=== PATIENT | male | born 1980 | race Caucasian/White ===

== ENCOUNTER 2018-12-12 10:58 | Emergency (ER) | payer SELFPAY ==
[2018-12-12 11:11] VITALS: BP 140/80; PULSE 98; TEMP 98
[2018-12-12] MEDS ORDERED: KETOROLAC TROMETHAMINE 60 MG/2 ML VIAL IM ONE (12:46)
[2018-12-12] MEDS ORDERED: KETOROLAC TROMETHAMINE 60 MG/2 ML VIAL ONE (12:50)
--- NOTE | 2018-12-12 12:51 | PDOC ---
History of Present Illness - General Chief Complaint: Chronic pain Stated Complaint: KNEE PAIN Time Seen by Provider: 12/12/18 12:31 - History of Present Illness Initial Comments: 12/12/18 12:47 38-year-old male without comorbidities presents for evaluation of polyarthralgia 3 months without any precipitating traumatic event he also has lower back pain he states he noticed it when the weather changed. Past History - Past Medical History Allergies/Adverse Reactions: Allergies Allergy/AdvReac Type Severity Reaction Status Date / Time No Known Allergies Allergy Verified 12/12/18 11:12 COPD: No - Suicide/Smoking/Psychosocial Hx Smoking History: Never smoked Drug/Substance Use Hx: No Review of Systems - Review of Systems Constitutional: No: Fever Musculoskeletal: Yes: See HPI, Joint Pain *Physical Exam - Vital Signs Last Vital Signs Temp Pulse Resp BP Pulse Ox 98.0 F 98 H 14 140/80 97 12/12/18 11:08 12/12/18 11:08 12/12/18 11:08 12/12/18 11:08 12/12/18 11:08 - Physical Exam Comments: 12/12/18 12:48 HEAD: NC/AT EYES: Conjuntiva clear Ears: Canals and TM's normal NOSE: No d/c THROAT: Moist mucous membrances, oral pharanx clear, uvula midline NECK: Supple without adenopathy CARDIAC: S1 S2 LUNGS: CTA Full and Equal breath sounds ABDOMEN: Soft NT ND MS: Full ROM in all joints without edema NEUROLOGIC: No gross sensory or motor deficits, NVID SKIN: Normal color and temperature no lesions or rashes Medical Decision Making - Medical Decision Making 12/12/18 12:48 38-year-old healthy male with subjective pain in all his joints with weather changes. This may be an osteoarthritic issue versus a rheumatologic issue. I believe a good place for him to start is with rheumatology. I will prescribe him Motrin at home treat him with Toradol in the emergency room. I've given him a list of local toter. *DC/Admit/Observation/Transfer Diagnosis at time of Disposition: Polyarthralgia - Discharge Dispostion Disposition: HOME Condition at time of disposition: Stable Decision to Admit order: No - Referrals Referrals: Rachel Madrigal MD [Non Staff, Medical] - Bernabe Barnes [Non Staff, Medical] - Rahul Lara MD [Non Staff, Medical] - Jaime Rehman MD [Non Staff, Medical] - Wily Rodriguez [Non Staff, Medical] - Mike Bell [Non Staff, Medical] - Priscilla Noel MD [Non Staff, Medical] - Shawn Raymond MD [Non Staff, Medical] - Nery Boyer MD [Non Staff, Medical] - Luan Juan MD [Staff Physician] - Angelita Jennings MD [Non Staff, Medical] - Karen Marroquin [Non Staff, Medical] - Gabrielle Fish [Non Staff, Medical] - Abimael Jasso MD [Non Staff, Medical] - Marcial Gary MD [Non Staff, Medical] - Avni Villa MD [Non Staff, Medical] - Merle Ernst MD [Non Staff, Medical] - Crescencio Carrington [Non Staff, Medical] - Sami Costello [Non Staff, Medical] - Amanda Costello MD [Staff Physician] - Hema Irby MD [Staff Physician] - Heidy Adhikari [Non Staff, Medical] - Sharee Brown MD [Non Staff, Medical] - Esteban Lacy MD, MD [Non Staff, Medical] - Darlin Dominguez MD [Non Staff, Medical] - Radha Carter MD [Staff Physician] - Arnav Arauz MD [Non Staff, Medical] - Kimber Ocampo MD [Non Staff, Medical] - - Patient Instructions Printed Discharge Instructions: DI for Arthralgia, DI for Joint Pain Additional Instructions: Please follow-up with rheumatology in 1-2 days for further evaluation and treatment options. He may use Tylenol and Motrin as directed for pain. Do not take any Advil Motrin Aleve or ibuprofen today. He will given a injection of a long-acting anti-inflammatory today in the emergency room he may start that medication tomorrow. You may however take Tylenol as directed starting when he leave the emergency room. Return to the emergency room for worsening symptoms and follow-up with rheumatology within the next 1-2 days. - Post Discharge Activity
== END 2018-12-12 12:57 | disposition home or self-care (01) ==
LOC: JERFT 10:58
PROC: 3E0233Z Introduction of Anti-inflammatory into Muscle, Percutaneous Approach (ICD-10-PCS; principal; 2018-12-12)
DX: M25.50 Pain in unspecified joint (principal); M54.5 Low back pain
CPT/HCPCS: 99281-25